=== PATIENT | female | born 1950 | race Caucasian/White ===

== ENCOUNTER 2019-07-04 17:34 | Emergency (ER) | payer MEDICARE ==
--- NOTE | 2019-07-04 18:22 | RAD ---
Exam:Left foot 3 view HISTORY: Pain and swelling, starting today COMPARISON: None FINDINGS: Lisfranc alignment is maintained. Joint spaces are preserved. No fracture, cortical irregularity or periosteal reaction. Mild soft tissue swelling Erosive changes involving the distal first metatarsal with soft tissue swelling. Correlate for gout a rthropathy. Diffuse bony mineralization. IMPRESSION: 1. Correlate for gout arthropathy.
== END 2019-07-04 19:23 | disposition home or self-care (01) ==
LOC: ERS 17:34
DX: M79.89 Other specified soft tissue disorders (principal); M79.672 Pain in left foot